=== PATIENT | female | born 1965 ===

== ENCOUNTER 2018-12-21 08:35 | Outpatient (CLI) | payer OTHER ==
[~2018-12-21] VITALS: Ht 152.4 cm; Wt 79.8 kg
== END 2018-12-21 08:50 | disposition home or self-care (01) ==
LOC: OFIC 805 08:35
DX: H92.02 Otalgia, left ear (principal); M26.612 Adhesions and ankylosis of left temporomandibular joint; B36.9 Superficial mycosis, unspecified; H61.23 Impacted cerumen, bilateral